=== PATIENT | male | born 1945 | race Caucasian/White ===

== ENCOUNTER → 2017-09-28 | Outpatient (CLI) | payer MEDICARE, OTHER ==
--- NOTE | 2017-09-28 13:24 | MR ---
EXAMINATION TYPE: MR hip RT wo con DATE OF EXAM: 09/28/2017 COMPARISON: NONE HISTORY: 72-year-old male Idiopathic aseptic necrosis of hip, rt hip pain x 2 weeks TECHNIQUE: Multiplanar, multisequence images of the right hip were obtained without IV contrast. FINDINGS: Abnormal signal is related to the superior weight-bearing aspect of the femoral head and the abnormal signal changes are present on both sides of the joint with greater degree of changes along the aceta bular roof subchondral geodes measure up to 1.2 cm. There is irregularity of the articular surface an d significant loss of cartilage and joint space along the weightbearing aspect. The labrum is diffuse ly degenerative. There is a large multilocular 2.2 x 1.2 cm paralabral cyst along the superior left acetabulum. No evidence for hip fracture or AVN. Moderate right hip joint effusion asymmetric to the contralateral side. Symmetric course, caliber, and signal intensity of the sciatic nerves. Sacrum and SI joints appear intact as does the pubic symphysis. The rectus femoris origins are intact. Mild tendinosis at the bilateral hamstrings origins. Iliopsoas insertions are intact. Mild tendinosis at the right gluteal insertions and a tiny interstitial tear delaminating along the p osterosuperior gluteus medius fibers. Prostate gland mildly prominent measuring 4.4 cm wide. Sigmoid diverticulosis noted. No suspicious bone marrow replacement. IMPRESSION: 1. Severe right hip osteoarthrosis with a moderate joint effusion, likely reactive. 2. No evidence for hip fracture or AVN. 3. A 2.2 x 1.2 cm paralabral cyst along the superior left hip. 4. Mild insertional gluteal tendinosis on the right. There is a tiny interstitial tear involving the posterosuperior gluteus medius fibers.
== END | disposition home or self-care (01) ==
LOC: RADMRIMAIN 10:10
PROVIDERS: ATTEND Internal Medicine
DX: M16.11 Unilateral primary osteoarthritis, right hip (principal); M25.451 Effusion, right hip; M24.852 Other specific joint derangements of left hip, not elsewhere classified; M76.01 Gluteal tendinitis, right hip

== ENCOUNTER → 2019-04-08 | Outpatient (CLI) | payer MEDICARE, OTHER ==
--- NOTE | 2019-04-08 13:15 | XR ---
EXAMINATION TYPE: XR KUB DATE OF EXAM: 04/08/2019 HISTORY: Pain Comparison: None Single KUB is submitted for interpretation. Findings: Right renal calculi: Several small vague calculus suspected overlying the right kidney measuring up t o 3 mm. Right ureteral calculi: None Visualized. Left renal calculi: Multiple left-sided renal calculi noted totaling approximately 4 in number the l argest seen within the upper pole measures 5 mm. Left ureteral calculi: None Visualized. Pelvic calcifications: Left hemipelvic phleboliths noted. Bowel gas pattern is unremarkable. No free air. No mass effects. Numerous layering small gallstones noted. IMPRESSION: 1. Bilateral nephrolithiasis.
== END | disposition home or self-care (01) ==
LOC: RADXRMAIN 10:12
PROVIDERS: ATTEND Urology
DX: N20.0 Calculus of kidney (principal)
CPT/HCPCS: 74018

== ENCOUNTER → 2021-01-06 | Outpatient (CLI) | payer MEDICARE, OTHER ==
--- NOTE | 2021-01-07 06:42 | US ---
EXAMINATION TYPE: US kidneys/renal and bladder DATE OF EXAM: 01/06/2021 COMPARISON: US March 13, 2019 CLINICAL HISTORY: N18.30 CKD stage 3. CKD EXAM MEASUREMENTS: Right Kidney: 10.3 x 5.3 x 5.3 cm Left Kidney: 11.4 x 5.1 x 4.7 cm Right Kidney: Cortical thinning, Hypoechoic lesion upper pole= 2.0 x 1.7 x 1.6 cm smaller in size whe n compared to previous/ No evidence of hydro, probable calculi scattered throughout kidney largest 4m m in size Left Kidney: Multicystic with largest cyst lower pole= 1.4 x 0.9 x 1.3 cm, possible 4mm calculus, no evidence of hydro Bladder: wnl Bilateral Jets seen: yes Some cortical volume loss right kidney. There is 2.0 cm exophytic thin-walled cyst upper pole of the right kidney redemonstrated. Adjacent liver remains heterogeneously hyperechoic. Possible tiny nonobs tructing right renal calculi redemonstrated. Urinary bladder is adequately distended. Bilateral dista l ureter jets are seen. Left kidney shows increased cortical echogenicity with scattered benign thin- walled small cortical cysts. There are possible tiny nonobstructing left renal calculi. IMPRESSION: Evidence of chronic medical renal disease. No hydronephrosis seen bilaterally. No signifi cant change from prior ultrasound.
== END | disposition home or self-care (01) ==
LOC: RADUSWWP 16:03
PROVIDERS: ATTEND Internal Medicine
DX: N28.89 Other specified disorders of kidney and ureter (principal)
CPT/HCPCS: 76770

== ENCOUNTER → 2021-01-15 | Outpatient (CLI) | payer MEDICARE, OTHER ==
--- NOTE | 2021-01-15 10:59 | CT ---
EXAMINATION TYPE: CT urogram wo/w con DATE OF EXAM: 01/15/2021 COMPARISON: Ultrasound 01/06/2021 HISTORY: Bladder CA CT DLP: 2616.4 mGycm, Automated Exposure Control for Dose Reduction was Utilized. CONTRAST: CT scan of the abdomen and pelvis is performed with oral and without and with IV Contrast, patient in jected with 80ml mL of Isovue 300. FINDINGS: LUNG BASES: No significant abnormality is appreciated. LIVER/GB: Numerous gallstones noted. Gallbladder prominent in size with no definite extrahepatic bili tracy ductal dilation.. PANCREAS: Punctate pancreatic calcifications noted. Correlate for history of previous chronic pancrea titis.. SPLEEN: No significant abnormality is seen. ADRENALS: No significant abnormality is seen. KIDNEYS: 2 cm exophytic upper pole right renal cyst measures 12 Hounsfield units compatible with a Jose sniak 1 classification simple cyst. Right kidney: There are approximately 7 less than 5 mm right renal calculi but no hydronephrosis. Left kidney: There are approximately 3 5 mm or less left renal calculi with no hydronephrosis or neph rolithiasis. There are multiple hypodensities within the left kidney too small to characterize. Statistically most likely related to a Bosniak classification 1 simple cyst. However, there is a 8 mm lower pole left r enal lesion which does not meet the criteria of a simple cyst. Ureters significant segmentally to be of normal course and caliber. No definite filling defect as visualized. BOWEL: Changes of diverticulosis noted. LYMPH NODES: No greater than 1cm abdominal or pelvic lymph nodes are appreciated. OSSEOUS STRUCTURES: Hypertrophic and degenerative changes of the spine. Postsurgical change involving the right hip results in artifact in the pelvis. Chronic appearing rib deformities noted on the left . OTHER: Prostate gland is prominent. Results in impression upon the bladder. Unfortunately artifact fr om patient's right hip prostheses obscures portions of the pelvis results in a limited assessment of the bladder. A density along the posterior margin seen on the delayed is identified. No sonographic a bnormality was reported. Correlate clinically. IMPRESSION: 1. There is irregularity along the posterior margin of the bladder which could be related to mucosal lesion. 2. Bilateral nephrolithiasis all measuring less than 5 mm with no hydronephrosis. Note is made there is a subcentimeter lesion in the lower pole the left kidney which is not compatible with a simple cys t as noted on delayed axial image 37. Consider MRI follow-up given the ultrasound did not describe th e lesion. Additional simple appearing Bosniak classification 1 cysts are noted. 3. Gallbladder hydrops with numerous gallstones. No extrahepatic biliary dilation identified. Mild ce ntral intrahepatic ductal dilation.
== END | disposition home or self-care (01) ==
LOC: RADCTMAIN 08:36
PROVIDERS: ATTEND Urology
DX: N32.89 Other specified disorders of bladder (principal); N20.0 Calculus of kidney; K80.20 Calculus of gallbladder without cholecystitis without obstruction
CPT/HCPCS: 82565; 84520; 74178; 36415; 74400; Q9967